=== PATIENT | male | born 1995 | race Two or more races ===

== ENCOUNTER 2024-07-17 19:49 | Emergency (ER) | payer OTHER, SELFPAY ==
[2024-07-17 19:59] VITALS: BP 128/82; PULSE 80; RESP 16; TEMP 36.3; O2SAT 100
--- NOTE | 2024-07-17 23:46 | ED.EYEPROB ---
HPI - Eye Problem General Chief complaint: Eye Problems Stated complaint: glass in eye Time Seen by Provider: 07/17/24 23:35 History of Present Illness HPI Narrative: 29 y/o M presents to the ED for right eye pain and concern for foreign body. Patient states this afternoon someone was hammering a piece of glass next item in a sharp fluid in his right eye. Patient states since then he has had pain when he blinks. He denies vision changes. He does not were contacts. Related Data Allergies Allergy/AdvReac Type Severity Reaction Status Date / Time No Known Allergies Allergy Verified 07/17/24 19:51 Review of Systems Review of Systems: All systems reviewed & are unremarkable except as noted in HPI and below Exam Narrative: GENERAL: Well-appearing, well-nourished, and in no acute distress. HEAD: Normocephalic, atraumatic. EYES: PERRLA and EOMI. Right eye injected with clear tearing. No foreign bodies. Peripheral vision intact. Visual acuity noted in nursing notes. Forcing staining shows increased uptake near the 4 o'clock position consistent with a corneal abrasion. Negative Dhiraj sign. No foreign bodies again seen with forcing staining. ENT: Nares clear, no rhinorrhea or epistaxis. Mucous membranes moist. NECK: Supple. CHEST: Clear to auscultation. No respiratory distress. HEART: Regular rate and rhythm. No murmur heard. Normal peripheral pulses. EXTREMITIES: Normal range of motion. No edema. SKIN: Warm, dry, no rash. NEURO: No focal deficits. Alert and oriented x3 Course Vital Signs Vital signs: Vital Signs Temperature 97.3 F L 07/17/24 19:59 Pulse Rate 80 07/17/24 19:59 Respiratory Rate 16 07/17/24 19:59 Blood Pressure 128/82 07/17/24 19:59 Pulse Oximetry 100 07/17/24 19:59 Oxygen Delivery Room Air 07/17/24 19:59 Temperature 97.3 F L 07/17/24 19:59 Pulse Rate 80 07/17/24 19:59 Respiratory Rate 16 07/17/24 19:59 Blood Pressure 128/82 07/17/24 19:59 Pulse Oximetry 100 07/17/24 19:59 Oxygen Delivery Room Air 07/17/24 19:59 MDM - Eye Problem MDM Narrative Medical decision making narrative: 29-year-old male presents to emergency department with right eye discomfort after a piece of glass flew into his eye earlier today. See HPI for further history. Vitals are stable. Exam is significant for the above. Notably no foreign bodies, negative Dhiraj sign but there is increased uptake in the 4 o'clock position consistent with a corneal abrasion. Patient was prescribed erythromycin ointment and advised to follow-up with Ophthalmology, referral provided. Discussed return precautions. He is agreeable with the plan verbalized understanding. Discharged in stable condition. Discharge Plan Discharge Clinical Impression: Corneal abrasion Qualifiers: Encounter type: initial encounter Laterality: right Qualified Code(s): S05.01XA - Injury of conjunctiva and corneal abrasion without foreign body, right eye, initial encounter Patient Disposition: Home, Self-Care Condition: Stable Instructions: Antibiotic Form Additional Instructions: You were evaluated in the emergency department for right eye pain. Your found have a corneal abrasion. Please use antibiotics as directed and follow-up closely with the health care assistant at [facility] at [phone]. Return to the emergency department if you develop vision changes, worsening pain or other concerning symptoms. Patient Language: [place] Prescriptions: New erythromycin 5 mg/gram (0.5 %) ointment 0.5 inch RIGHT EYE QID Qty: 3.5 0RF Follow-up/Referrals: PHYSICIAN NOT ON STAFF,NONSTAFF [Primary Care Provider] -
[2024-07-18 00:05] VITALS: BP 116/73; PULSE 79; RESP 14; O2SAT 99
[2024-07-18] MEDS: ERYTHROMYCIN OPHTH OINTMENT 1 GM TUBE 1 APPLIC RIGHT EYE (01:08)
== END 2024-07-18 01:10 | disposition home or self-care (01) ==
PROVIDERS: Emergency Provider Physician Assistant
DX: S05.01XA Injury of conjunctiva and corneal abrasion without foreign body, right eye, initial encounter (principal); W25.XXXA Contact with sharp glass, initial encounter
CPT/HCPCS: 99283; A9270